=== PATIENT | male | born 1930 | race Caucasian/White ===

== ENCOUNTER 2016-10-27 10:07 | Outpatient (CLI) | payer MEDICARE ==
--- NOTE | 2016-10-27 11:11 | XRAY Report ---
THREE-VIEW RIGHT HAND: 10/27/2016 CLINICAL INDICATION: Pain. FINDINGS: AP, lateral, oblique views of the right hand demonstrate mild osteoarthritis of the interp halangeal joints. There is no evidence of acute fracture or dislocation. No radiopaque foreign body is seen in the soft tissues. IMPRESSION: MILD OSTEOARTHRITIS. JOB #: [id number] EXT JOB #:[id number]
== END 2016-10-27 10:08 | disposition home or self-care (01) ==
LOC: DI 10:07
PROVIDERS: ATTEND Nurse Practitioner Family
DX: M19.041 Primary osteoarthritis, right hand (principal)

== ENCOUNTER 2016-12-15 09:37 | Outpatient (CLI) | payer MEDICARE ==
--- NOTE | 2016-12-15 12:09 | Ultrasound Report ---
ABDOMINAL AORTA: 12/15/2016 COMPARISON: Abdominal aorta of 11/28/2014. INDICATION: Abdominal aortic aneurysm surveillance. TECHNIQUE: Sonographic evaluation of the abdominal aorta and proximal iliac arteries was performed. FINDINGS: Known abdominal aortic aneurysm measures 3.9 x 3.6 cm, previously 3.6 x 3.5 cm, a slight increase in size over the study interval compared to 2014. The proximal abdominal aorta is 2.5 x 2.5 cm. The mid abdominal aorta is 2.3 x 2.4 cm. The aorta distal to the aneurysm is 1.6 x 1.5 cm. Right iliac artery is 1.2 x 1.2 cm. Left iliac artery is 1.3 x 1.1 cm. Peak systolic velocities of the aorta measure up to 114 cm/second. IMPRESSION: INFRARENAL ABDOMINAL AORTIC ANEURYSM SLIGHTLY INCREASED IN SIZE FROM THE PRIOR EXAM NOW MEASURING 3.9 X 3.6 CM. JOB #: [id number] EXT JOB #:[id number]
== END 2016-12-15 09:38 | disposition home or self-care (01) ==
LOC: DI 09:37
PROVIDERS: ATTEND Internal Medicine
DX: I71.4 Abdominal aortic aneurysm, without rupture (principal)
CPT/HCPCS: 76706

== ENCOUNTER 2017-06-01 15:57 | Outpatient (CLI) | payer MEDICARE ==
--- NOTE | 2017-06-01 19:28 | Ultrasound Report ---
EXAM: RENAL ULTRASOUND EXAM DATE: 06/01/2017 06:24 PM. CLINICAL HISTORY: Pain, UTI. COMPARISON: None. TECHNIQUE: Real-time scanning was performed with static images obtained. FINDINGS: Right Kidney: 10.1 x 5.0 x 4.6 cm. Unremarkable echotexture. Small cyst measuring 1.1 x 1.1 x 1.1 cm. Multiple calculi, the largest measuring 1.5 x 0.9 cm in the lower pole. No hydronephrosis. Left Kidney: 10.9 x 5.6 x 5.1 cm. Unremarkable echotexture. Complex cyst measuring 1.6 x 1.1 x 1.5 cm . Multiple calculi, the largest measuring 1.2 cm in diameter in the lower pole. Mild hydronephrosis. Bladder: Normal right ureteral jet; left jet not seen area The prevoid bladder volume was 285.2 cc. T he postvoid bladder volume was 5.9 cc. Other: Prominent prostate measuring 5.0 x 4.2 x 4.2 cm. IMPRESSION: 1. Multiple bilateral renal calculi. 2. Absent left ureteral jet; mild left hydronephrosis. Obstructing stone is likely. RADIA The call report notification system was initiated by Dr. Bryan Hooker at 18:41 hrs on 06/01/17. Multiple attempts to call the report were unsuccessful. Referring Provider Line: [phone] SITE ID: [id number]
== END 2017-06-01 15:58 | disposition home or self-care (01) ==
LOC: DI 15:57
PROVIDERS: ATTEND Internal Medicine
DX: N20.0 Calculus of kidney (principal); N13.30 Unspecified hydronephrosis
CPT/HCPCS: 76770

== ENCOUNTER 2017-06-12 10:09 | Outpatient (CLI) | payer MEDICARE ==
--- NOTE | 2017-06-12 12:50 | Ultrasound Report ---
RENAL ULTRASOUND: 06/12/2017 CLINICAL INDICATION: Check stone. COMPARISON: 06/01/2017. TECHNIQUE: Real-time scanning was performed with customer sales representative static images obtained. FINDINGS: The right kidney measures 9.9 x 5.8 x 5.4 cm. Multiple calculi are again noted. The largest, in the lower pole, measures 1.2 cm. Cortical cyst is stable. No right hydronephrosis or perinephric collection. The left kidney measures 11.8 x 5.4 x 4.0 cm. Multiple calculi are again seen. Prominence of the left collecting system has decreased from previous. No perinephric collection is seen. Prevoid, the urinary bladder measures 10.0 x 9.2 x 9.2 cm, yielding a prevoid volume of 450 mL. Bilateral ureteral jets are visualized. Postvoid residual is 12 mL. No focal bladder wall lesion is seen. IMPRESSION: 1. BILATERAL NEPHROLITHIASIS, NOT SIGNIFICANTLY CHANGED. 2. DECREASE IN PROMINENCE OF THE LEFT RENAL COLLECTING SYSTEM, WITH VISUALIZATION OF THE LEFT URETERAL JET ON TODAY'S EXAMINATION, COMPATIBLE WITH INTERVAL PASSAGE OF A PREVIOUSLY OBSTRUCTING CALCULUS. 3. NO SIGNIFICANT POSTVOID RESIDUAL. TD: 06/12/2017 12:49 TIAGO
== END 2017-06-12 10:10 | disposition home or self-care (01) ==
LOC: DI 10:09
PROVIDERS: ATTEND Internal Medicine
DX: N20.0 Calculus of kidney (principal); N39.0 Urinary tract infection, site not specified
CPT/HCPCS: 76770

== ENCOUNTER 2018-03-23 18:30 | Emergency (ER) | payer MEDICARE ==
[2018-03-23] MEDS ORDERED: ACETAMINOPHEN 500 MG TABLET PO STA (19:00)
[2018-03-23] MEDS ORDERED: IBUPROFEN 600 MG TABLET PO STA (19:00)
--- NOTE | 2018-03-23 19:39 | XRAY Report ---
Reason: pain Procedure Date: 03/23/2018 Accession Number: [id number] / [id number] Procedure: XR - Wrist 3 View RT CPT Code: FULL RESULT: EXAM: RIGHT WRIST RADIOGRAPHY EXAM DATE: 03/23/2018 07:18 PM. CLINICAL HISTORY: Pain. COMPARISON: Hand 3 views, right 10/27/2016 10:18 AM. TECHNIQUE: 3 views. FINDINGS: Bones: Normal. No fractures or bone lesions. Joints: Mild degenerative changes at the radial-ulnar and first carpometacarpal joint. Soft Tissues: Normal. No soft tissue swelling. IMPRESSION: No acute bony injury. Mild radial-ulnar and first carpometacarpal joint degenerative changes. RADIA
[2018-03-23 20:21] VITALS: BP 138/96
--- NOTE | 2018-03-23 20:24 | ED Physician Documentation ---
PD HPI UPPER EXT INJURY - Stated complaint Stated Complaint: WRISTS PX - Chief complaint Chief Complaint: Ext Problem - History obtained from History obtained from: Patient - History of Present Illness Location: Right, Left, Wrist, Other (The patient's pain started in the bilateral wrist but now only has pain in his right wrist) Type of injury: Other (The patient's symptoms started yesterday after using an ax to cut wood) Where injury occurred: Home Timing - onset: Yesterday Timing - details: Gradual onset Severity Comments: mild Improved by: Rest, Immobilization Worsened by: Moving Associated symptoms: No: Weakness, Numbness, Tingling, Swelling, Discolored Similar symptoms before: Has not had sx before Recently seen: Not recently seen Review of Systems Constitutional: denies: Fever Eyes: denies: Discharge Cardiac: denies: Chest pain / pressure GI: denies: Abdominal Pain Musculoskeletal: reports: Extremity pain, Joint pain Neurologic: denies: Generalized weakness, Headache PD PAST MEDICAL HISTORY - Past Medical History Past Medical History: Yes Cardiovascular: Hypertension, High cholesterol Respiratory: None Endocrine/Autoimmune: None GI: None : Benign prostate hypertrophy, Kidney stones Psych: None Musculoskeletal: None Derm: None - Past Surgical History Past Surgical History: Yes General: Colonoscopy HEENT: Cataracts - Present Medications Home Medications: Ambulatory Orders Medication Instructions Recorded Confirmed Losartan [Cozaar] 50 mg PO BID 11/29/12 11/29/12 Loratadine [Claritin] 10 mg PO PRN 12/23/12 12/23/12 - Allergies Allergies/Adverse Reactions: Allergies Allergy/AdvReac Type Severity Reaction Status Date / Time Penicillins Allergy Severe Hives Verified 03/23/18 18:36 - Social History Does the pt smoke?: No Smoking Status: Never smoker Does the pt drink ETOH?: Yes Does the pt have substance abuse?: No - Immunizations Immunizations are current?: Yes - POLST Patient has POLST: No PD ED PE NORMAL - General General: Alert and oriented X 3, No acute distress - HEENT HEENT: Atraumatic, PERRL, EOMI, Ears normal - Derm Derm: Normal color - Extremities Extremities: Other (The patient has tenderness in bilateral wrist, there is no crepitus or obvious deformity or swelling or skin changes. The patient has full active range of motion. The patient has a normal bilateral radial pulses and brisk cap refill.) - Neuro Neuro: Alert and oriented X 3, Normal speech Results - Vitals Vitals: Vital Signs - 24 hr 03/23/18 03/23/18 18:33 20:20 Temperature 36.1 C L Heart Rate 76 76 Respiratory 20 18 Rate Blood Pressure 143/110 H 138/96 H O2 Saturation 98 98 Oxygen O2 Source Room air - Rads (name of study) XR wrist Radiology: Final report received, See rad report (IMPRESSION: No acute bony injury. Mild radial-ulnar and first carpometacarpal joint degenerative changes.) PD MEDICAL DECISION MAKING - ED course ED course: The patient's symptomsAre most likely secondary to overuse and the arthritis. Presently the patient appears appropriate for discharge and ongoing outpatient management. I discussed warning signs and recommended returning to the emergency department for any worsening or any concerns. Departure - Departure Disposition: 01 Home, Self Care Clinical Impression: Wrist pain, right Condition: Good Instructions: ED Degenerative Joint Disease Follow-Up: Domo Salazar MD [Primary Care Provider] - Within 1 week Comments: Please return to the ED for worsening symptoms or any concerns
== END 2018-03-23 20:20 | disposition home or self-care (01) ==
LOC: ED 18:30
DX: M25.531 Pain in right wrist (principal); I10 Essential (primary) hypertension; E78.00 Pure hypercholesterolemia, unspecified
CPT/HCPCS: 73110; 99282; 99283; A9270

== ENCOUNTER 2021-03-07 08:00 | Outpatient (CLI) | payer MEDICARE ==
--- NOTE | 2021-03-07 16:25 | XRAY Report ---
PROCEDURE: Chest 2 View X-Ray INDICATIONS: DYSPNEA UPON EXERTION TECHNIQUE: 2 view(s) of the chest. COMPARISON: None. FINDINGS: SUPPORT DEVICES: None. LUNGS/PLEURA: Linear density in right midlung zone. No focal consolidation, pleural effusion or space -occupying pneumothorax. MEDIASTINUM: The cardiomediastinal silhouette is within normal limits. BONES/SOFT TISSUES: No acute abnormality. IMPRESSION: 1.Plate atelectasis in the right midlung zone versus scarring. Reviewed by: Mina Maya MD on 03/07/2021 4:24 PM [facility] Approved by: Mina Maya MD on 03/07/2021 4:24 PM [facility] Station ID: [id number]
== END 2021-03-07 23:59 ==
LOC: DI.S 08:00
PROVIDERS: ATTEND Internal Medicine
DX: R06.09 Other forms of dyspnea (principal); R91.8 Other nonspecific abnormal finding of lung field

== ENCOUNTER 2021-07-06 22:43 | Outpatient (CLI) | payer MEDICARE | END 2021-07-06 22:44 | disposition critical access hospital (66) | LOC: EMS 22:43 | DX: N23 Unspecified renal colic (principal) | CPT/HCPCS: A0425; A0429 ==

== ENCOUNTER 2021-07-06 23:17 | Emergency (ER) | payer MEDICARE ==
[2021-07-06 23:45] LABS: BASOPHILS % (AUTO) 0.2 %; EOSINOPHILS % (AUTO) 0.2 %; HCT - HEMATOCRIT 41.7 % (42.0-52.0); LYMPHOCYTES # (AUTO) 0.9 10^3/uL (1.5-3.5); LYMPHOCYTES % (AUTO) 5.5 %; MEAN CORPUSCULAR HGB CONC 33.6 g/dL (32.0-36.0); MEAN CORPUSCULAR VOLUME 92.3 fL (80.0-94.0); MEAN PLATELET VOLUME 9.5 fL (7.4-11.4); MONOCYTES # (AUTO) 1.3 10^3/uL (0.0-1.0); MONOCYTES % (AUTO) 8.2 %; NEUTROPHILS # (AUTO) 13.9 10^3/uL (1.5-6.6); NEUTROPHILS % (AUTO) 85.6 %; PLT - PLATELET COUNT 219 10^3/uL (130-450); RED BLOOD COUNT 4.52 10^6/uL (4.70-6.10); RED CELL DISTRIBUTION WIDTH 12.5 % (12.0-15.0); WHITE BLOOD COUNT 16.2 x10^3/uL (4.8-10.8)
[2021-07-06 23:57] LABS: ALBUMIN 4.2 g/dL (3.2-5.5); ALBUMIN/GLOBULIN RATIO 1.3 (1.0-2.2); CALCIUM 9.3 mg/dL (8.5-10.3); CREATININE 1.8 mg/dL (0.6-1.2); POTASSIUM 4.1 mmol/L (3.5-5.0); TOTAL PROTEIN 7.5 g/dL (6.7-8.2)
[2021-07-07] MEDS ORDERED: ONDANSETRON 4 MG/2 ML VIAL IVP STA (00:31)
[2021-07-07] MEDS ORDERED: SODIUM CHLORIDE 0.9% 1,000 ML IV STA (00:31)
[2021-07-07] MEDS ORDERED: fentaNYL 100 MCG/2 ML VIAL IVP STA (00:32)
--- NOTE | 2021-07-07 00:33 | ED Physician Documentation ---
PD HPI ABD PAIN - Stated complaint Stated Complaint: RIGHT FLANK PAIN - Chief complaint Chief Complaint: Abd Pain - Additional information Additional information: Patient is an 89-year-old male with past medical significant for recurrent kidn ey stones, as well as known history of aortic abdominal aneurysm presenting to the emergency department with right-sided flank pain. Reports pain ongoing x1 day. Associated with nausea and vomiting. States this feels similar to kidney stones he has had in the past. Review of Systems Ten Systems: 10 systems reviewed and negative Constitutional: denies: Fever Eyes: denies: Loss of vision Ears: denies: Loss of hearing Nose: denies: Rhinorrhea / runny nose Throat: denies: Dental pain / toothache Cardiac: denies: Chest pain / pressure Respiratory: denies: Dyspnea GI: reports: Abdominal Pain, Nausea, Vomiting : denies: Dysuria Skin: denies: Rash PD PAST MEDICAL HISTORY - Past Medical History Cardiovascular: Hypertension, High cholesterol Respiratory: None Endocrine/Autoimmune: None GI: None : Benign prostate hypertrophy, Kidney stones Psych: None Musculoskeletal: None Derm: None - Past Surgical History Past Surgical History: Yes General: Colonoscopy HEENT: Cataracts - Present Medications Home Medications: Ambulatory Orders Medication Instructions Recorded Confirmed Losartan [Cozaar] 50 mg PO BID 11/29/12 11/29/12 Loratadine [Claritin] 10 mg PO PRN 12/23/12 12/23/12 - Allergies Allergies/Adverse Reactions: Allergies Allergy/AdvReac Type Severity Reaction Status Date / Time Penicillins Allergy Severe Hives Verified 07/06/21 23:30 - Social History Does the pt smoke?: No Smoking Status: Never smoker Does the pt drink ETOH?: Yes Does the pt have substance abuse?: No - Immunizations Immunizations are current?: Yes - POLST Patient has POLST: No PD ED PE NORMAL - Vitals Vital signs reviewed: Yes - General General: Alert and oriented X 3 - HEENT HEENT: Atraumatic, PERRL, EOMI, Ears normal - Neck Neck: Supple, no meningeal sign, No bony TTP - Cardiac Cardiac: RRR, No gallop, Strong equal pulses - Respiratory Respiratory: No respiratory distress, Clear bilaterally - Abdomen Abdomen: Normal bowel sounds. No: Non tender (Right lower quadrant tenderness with guarding.) - Male Male : Deferred - Rectal Rectal: Deferred - Derm Derm: Normal color - Extremities Extremities: No deformity, No edema - Neuro Neuro: Alert and oriented X 3, manager of data 2-12 intact, No motor deficit, No sensory deficit, Normal speech - Psych Psych: Normal mood Results - Vitals Vitals: Vital Signs - 24 hr 07/06/21 07/06/21 07/07/21 23:28 23:31 02:13 Temperature 37.6 C Heart Rate 99 98 96 Respiratory 15 17 Rate Blood Pressure 180/91 H O2 Saturation 97 97 97 07/07/21 07/07/21 07/07/21 02:55 03:38 04:26 Temperature Heart Rate 93 91 96 Respiratory 15 17 16 Rate Blood Pressure 158/81 H 145/76 H 145/82 H O2 Saturation 95 98 96 07/07/21 05:22 Temperature Heart Rate 89 Respiratory 20 Rate Blood Pressure 146/77 H O2 Saturation 98 Oxygen O2 Source Room air - Labs Labs: Laboratory Tests 07/06/21 07/06/21 07/07/21 23:25 23:25 00:42 WBC 16.2 H RBC 4.52 L Hgb 14.0 Hct 41.7 L MCV 92.3 MCH 31.0 MCHC 33.6 RDW 12.5 Plt Count 219 MPV 9.5 Neut # (Auto) 13.9 H Lymph # (Auto) 0.9 L [place] # (Auto) 1.3 H Eos # (Auto) 0.0 Baso # (Auto) 0.0 Absolute Nucleated RBC 0.00 Nucleated RBC % 0.0 Sodium 133 L Potassium 4.1 Ch[place] 99 L Carbon Dioxide 21 Anion Gap 13.0 BUN 36 H Creatinine 1.8 H Estimated GFR (MDRD) 36 L Glucose 142 H Lactic Acid Calcium 9.3 Total Bilirubin 1.0 AST 22 ALT 22 Alkaline Phosphatase 66 Troponin I High Sens 5.6 Total Protein 7.5 Albumin 4.2 Globulin 3.3 Albumin/Globulin Ratio 1.3 Lipase 34 Urine Color Urine Clarity Urine pH Ur Specific [place] Urine Protein Urine Glucose (UA) Urine Ketones Urine Occult Blood Urine Nitrite Urine Bilirubin Urine Urobilinogen Ur Leukocyte Esterase Urine RBC Urine WBC Ur Squamous Epith Cells Urine Bacteria Ur Microscopic Review Urine Culture Comments SARS-CoV-2 (PCR) 07/07/21 07/07/21 07/07/21 00:42 01:30 02:57 WBC RBC Hgb Hct MCV MCH MCHC RDW Plt Count MPV Neut # (Auto) Lymph # (Auto) [place] # (Auto) Eos # (Auto) Baso # (Auto) Absolute Nucleated RBC Nucleated RBC % Sodium Potassium [place] Carbon Dioxide Anion Gap BUN Creatinine Estimated GFR (MDRD) Glucose Lactic Acid 1.2 Calcium Total Bilirubin AST ALT Alkaline Phosphatase Troponin I High Sens Total Protein Albumin Globulin Albumin/Globulin Ratio Lipase Urine Color YELLOW Urine Clarity SL. CLOUDY Urine pH 7.0 Ur Specific [place] 1.015 Urine Protein TRACE Urine Glucose (UA) NEGATIVE Urine Ketones NEGATIVE Urine Occult Blood LARGE H Urine Nitrite NEGATIVE Urine Bilirubin NEGATIVE Urine Urobilinogen 0.2 (NORMAL) Ur Leukocyte Esterase LARGE H Urine RBC 6-10 H Urine WBC >25 H Ur Squamous Epith Cells FEW Squamous Urine Bacteria Few Ur Microscopic Review INDICATED Urine Culture Comments INDICATED SARS-CoV-2 (PCR) NOT DETECTED PD MEDICAL DECISION MAKING - ED course Complexity details: reviewed results, re-evaluated patient, d/w patient ED course: Patient is 89-year-old male presenting to the emergency department with acute onset right-sided flank pain in setting of recurrent nephrolithiasis as well as known history of AAA. Afebrile, hemodynamically stable on arrival to the emergency department. Notable right lower quadrant tenderness with guarding but no rebound or rigidity appreciated on physical exam. Labs obtained demonstrate significant leukocytosis as well as a creatinine of 1.8. This is a significant increase from 1.1 which is patient's most recent creatinine recorded in 2013. No significant electrolyte abnormality noted. Urine analysis positive for a large amount of blood as well as large amounts of leukocyte esterase, greater than 25 white blood cell count and few bacteria noted. Patient endorse for history of anaphylaxis to penicillin based antibiotics. Was given dose of levofloxacin here in the emergency department. CT of the abdomen pelvis shows a 5 mm right-sided obstructive kidney stone with some inflammatory changes around the right kidney. Additionally patient was noted to have an unruptured AAA now 4.7 cm in greatest diameter. Patient chart review does demonstrate that it is being monitored and this does not represent an increase from most previous measurement on record which was 4.0 cm. Given patient's obstructed stone, worsening renal function and indications of infection in his urine as well as a significant leukocytosis of 16 I have asked the charge nurse to contact local area facilities in order to inquire about transfer for evaluation by urology and possible stent placement. At this time there are no beds available regionally. Patient is on the wait list at multiple facilities. I will be signing him out to the oncoming physician, please see their documentation for further detail. - Consults Consults: Consulted (name) (Dr. Quevedo, Urology, [facility]) Departure - Departure Disposition: 02 Transfer Acute Care Hosp Clinical Impression: Pulmonary nodule, MAGEN (acute kidney injury), Leukocytosis, UTI (urinary tract infection), AAA (abdominal aortic aneurysm) without rupture
[2021-07-07] MEDS ORDERED: IOVERSOL 320 100 ML VIAL IVP ONE ×2 (01:14→02:19)
[2021-07-07 01:42] LABS: BILIRUBIN,URINE NEGATIVE (NEGATIVE); CLARITY,URINE SL. CLOUDY (CLEAR); GLUCOSE, URINE (UA) NEGATIVE (NEGATIVE); KETONES,URINE (UA) NEGATIVE (NEGATIVE); LEUKOCYTE ESTERASE, URINE LARGE (NEGATIVE); NITRITE,URINE NEGATIVE (NEGATIVE); OCCULT BLOOD,URINE LARGE (NEGATIVE); PROTEIN,URINE TRACE mg/dL (NEGATIVE); UROBILINOGEN,URINE 0.2 (NORMAL) E.U./dL (NORMAL)
[2021-07-07 01:51] LABS: BACTERIA,URINE Few /HPF (None Seen); SQUAMOUS EPITHELIAL CELL,UR FEW Squamous (<= Few); WBC,URINE >25 /HPF (0-3)
[2021-07-07] MEDS ORDERED: levoFLOXacin 750 MG/150 ML 750 MG/150 ML BAG IV STA (02:39)
[2021-07-07 08:14] LABS: INR 1.3 (0.8-1.2)
--- NOTE | 2021-07-07 08:29 | CT Report ---
PROCEDURE: ANGIO CHEST W/WO INDICATIONS: History of aortic aneurysm CONTRAST: IV CONTRAST: Optiray 320 ml: 100 PO CONTRAST: *NO PO CONTRAST TECHNIQUE: After the administration of intravenous contrast, 2 mm axial images were acquired from the pulmonary apices to the posterior costophrenic angles during the arterial phase. In addition, 1 mm lung kernel and 5 mm soft tissue kernel reconstructions were performed. 3-dimensional coronal oblique maximum int ensity projection (MIP) reformats, 8 mm axial MIP, and 5 mm coronal and sagittal MPR reformats were t hen performed through the thorax. For radiation dose reduction, the following was used: automated exp osure control, adjustment of mA and/or kV according to patient size. COMPARISON: None FINDINGS: Image quality: Excellent. Aorta: There is mild ectasia of the ascending aorta measuring up to 4.3 cm, although motion artifact limits exam. There is soft plaque noted in the descending aorta. Pulmonary arteries: Pulmonary arteries are normal in size, and demonstrate no intraluminal filling d efects to suggest central pulmonary embolism. Lungs and pleura: There is a 4 mm nodule in the left upper lobe anteriorly image 131. Dependent atele ctasis is present at the lung bases. No pleural effusions or pneumothorax. Central and peripheral ai rways are patent. Mediastinum: Heart size is normal, with trace pericardial fluid.. No mediastinal or hilar adenopath y. Thoracic aorta is normal in caliber and enhancement. Esophagus is normal in caliber, without hia riky hernia. The coronary arteries have atherosclerotic calcifications. Mitral annular calcifications are present. Bones and chest wall: No suspicious bony lesions. Ribs and thoracic spine appear intact throughout. No axillary or supraclavicular adenopathy. The thyroid is normal in size and there are no incident al findings. Abdomen: See separately dictated CT of the abdomen and pelvis. IMPRESSION: 1. The ascending aorta measures 4.3 cm. 2. No pulmonary embolism. 3. 4 mm left upper lobe nodule. Recommend follow-up in 12 months. Findings above correspond with preliminary findings by [facility]. Reviewed by: Thanh Wilhelm on 07/07/2021 8:28 AM PDT Approved by: Thanh Wilhelm on 07/07/2021 8:28 AM PDT Station ID: [id number]
--- NOTE | 2021-07-07 08:34 | CT Report ---
PROCEDURE: ANGIO ABDOMEN/PELVIS W INDICATIONS: Aneurysm, right lower quadrant pain TECHNIQUE: After the administration of contrast, 5 mm thick sections acquired from the diaphragms to the sym physis. 5 mm thick coronal and sagittal reformats were acquired. For radiation dose reduction, the following was used: automated exposure control, adjustment of mA and/or kV according to patient size . COMPARISON: None. FINDINGS: Image quality: Excellent. ABDOMEN: Lung bases: Lung bases are clear. Heart size is normal. Solid organs: Liver: The liver has no mass or intrahepatic biliary ductal dilatation. The portal vein and hepatic veins are patent. Biliary: The gallbladder has no gallstones, pericholecystic fluid, gallbladder wall thickening, or barcenas rrounding inflammatory change. Pancreas: The pancreas has no mass or ductal dilatation. No surrounding inflammation. Spleen: Normal size. No mass. Adrenal glands: No hypertrophy or nodules. Kidneys: There is hydronephrosis and stranding around the right kidney. Nonobstructing calculi are no otf in the lower pole of the right kidney. There is a 5 mm obstructing calculus in the proximal urete r on the right image 73. Scarring in the lower pole of the left kidney as well as nonobstructing calc jason are seen.No solid mass. No cystic mass. Bowel: The distal esophagus and stomach are normal. The small bowel has a normal caliber and appeara nce. The terminal ileum is normal. The large bowel has diverticulosis without evidence of diverticu litis. Free air/free fluid: No free air or free fluid. Abdominal wall: No abdominal wall mass or hernia. Retroperitoneum: No retroperitoneal or mesenteric adenopathy by size criteria. The aorta has atheros clerotic calcifications. There is a 4.7 x 4.6 cm infrarenal abdominal aortic aneurysm. This measured 3.1 x 2.8 cm on 11/15/2012. The celiac axis is minimally stenotic at its ostium. The SMA and JAYANT are w idely patent. The renal arteries are patent bilaterally. Lymph nodes: No adenopathy. Bones: No suspicious bony lesions. No vertebral body compression fractures. PELVIS: Genitourinary: Bladder wall thickness is normal. Miscellaneous: Bilateral fat-containing inguinal hernias. Bones: No suspicious bony lesions. No vertebral body compression fractures. IMPRESSION: 1. Infrarenal abdominal aortic aneurysm measuring 4.7 x 4.6 cm spanning approximately 5 cm in length. This is larger compared to a prior CT in 2013 as above. 2. Bilateral nephrolithiasis as well as a nonobstructing 5 mm proximal ureteral calculus on the right . Findings above correspond with preliminary findings by Pam. Reviewed by: Thanh Wilhelm on 07/07/2021 8:32 AM PDT Approved by: Thanh Wilhelm on 07/07/2021 8:32 AM PDT Station ID: [id number]
--- NOTE | 2021-07-07 15:36 | ED Physician Documentation ---
ED Addendum - Addendum Addendum: 07/07/21 15:34I checked in on the patient who is feeling comfortable at this time. He has not needed any further pain medicines. He still feels some discomfort however so unlikely that the stone is passed. Vitals remained stable and he is afebrile. He had been given a dose of levofloxacin and so does not need any repeat dosings as yet. I advised the patient to be sure and let us know if he needs any further pain or nausea medications. He is still on waiting list at multiple facilities with the concern of an infected stone with some hydronephrosis.
[2021-07-07] MEDS ORDERED: LACTATED RINGERS 1,000 ML IV STA (17:35)
--- NOTE | 2021-07-07 17:50 | ED Physician Documentation ---
ED Addendum - Addendum Addendum: 07/07/21 17:49 89-year-old gentleman signed out to me pending potential transfer for urology consultation. At approximately 540 I was able to speak with Dr. Blade torres, urologist associated with the [facility], [place] and we discussed the presentation and diagnostics including labs and CT findings. He felt that the patient had been here long enough that if he was going to get septic, it would have declared itself by now and could probably be safely discharged for urgent follow-up with antibiotics and Flomax. I discussed this with the patient and he was eager to go home and agreeable with the plan. He declined a prescription for pain medications. We also discussed the incidental finding of AAA. He has already established with a vascular surgeon at [facility] and expedited follow-up was recommended. Disposition: Discharged home Condition: Stable Diagnoses: 1. Right ureteral stone 2. Pyuria 3. AAA Prescriptions for Flomax 0.4 mg p.o. daily #14 and levofloxacin 500 mg p.o. daily #8 were sent to [facility] in [place].
[2021-07-07] MEDS ORDERED: levoFLOXacin 250 MG TABLET PO STA (17:52)
[2021-07-07 17:58] VITALS: BP 152/87
== END 2021-07-07 18:57 | disposition home or self-care (01) ==
LOC: EDUNIT# → ED 23:17
DX: R91.1 Solitary pulmonary nodule (principal); N17.9 Acute kidney failure, unspecified; D72.829 Elevated white blood cell count, unspecified; N39.0 Urinary tract infection, site not specified; I71.4 Abdominal aortic aneurysm, without rupture; N20.1 Calculus of ureter; I10 Essential (primary) hypertension
CPT/HCPCS: 36415; 71275; 74174; 80053; 81001; 83605; 83690; 84484; 85025; 85610; 87086; 87635; 96361; 96365; 96366; 96375; 99284; 99285; A9270; J7120; Q9967; 81003

== ENCOUNTER 2021-07-28 07:37 | Outpatient (CLI) | payer MEDICARE ==
--- NOTE | 2021-07-28 08:35 | CARDIAC PROCEDURE NOTE ---
Stress Test Report Service Date: 07/28/21 Service Time: 08:00 Ordering Provider: Domo Salazar MD Indication for Test: Assess exertional dyspnea. 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 He has been treated for hypertension for at least 15 years. Whereas he was previously very vigorous working around his property, his tolerance of physical exertion has gradually but progressively decreased over the past 2-3 years. Sometimes he is able to "tough it out" to complete his physical work tasks taking extra deep breaths, but at other times he has to take intermittent breaks to re-group and can then resume. He denies having any exertional chest discomfort, lightheadedness or palpitations, and he does not experience any resting or positional dyspnea. Cardiac Risk Factors: Positive for hypertension; negative for hyperlipidemia, diabetes, family history of CAD and tobacco smoking ever. Type of Stress Test: ETT with Echocardiography Procedure: -Exercise Treadmill Test- After signing informed consent, the patient underwent resting echo imaging and then performed treadmill exercise using a Julien protocol. The patient exercised for 5 minutes 46 seconds and achieved a peak heart rate of 141 (107 percent predicted maximum heart rate for age), and an estimated workload of 7.1 METS. The test was terminated due to right thigh pain and shortness of breath. Resting heart rate: 75 Peak heart rate: 141 Normal response to exercise. Resting BP: 158/81 Peak BP: 207/98 Hypertensive at rest with physiologic increase in systolic and abnormal increase in diastolic BPs with exercise. Rhythm during exercise: Sinus rhythm throughout. Symptoms: Thigh pain was more limiting than dyspnea; NO chest discomfort reported. EKG at rest showed normal sinus rhythm, with isoelectric ST segments and early precordial R/S transition (V1-V2), latter likely a normal variant. EKG at peak stress showed J-point depression with upsloping ST segments, NOT meeting diagnostic criteria for ischemia. In Recovery HR rapidly/normally decreased toward resting level, with slower d ecrease in BP (remained elevated, 177/87) at 7:00. Echo imaging was performed at rest and with stress and will be reported separately. Julien Ramírez MD, was present throughout this treadmill stress study and supervised it in its entirety. Summary: 1) Exercise tolerance likely remains markedly above average for age and sex as evidenced by nomogram-derived GENOVEVA of -40%. 2) Normal resting EKG. 3) Adequate level of exercise was achieved on this treadmill stress test. 4) Hypertensive at rest, with physiologic response of systolic BP and abnormal increase of diastolic BP with exercise. Note that last losartan dose was >12 hours prior, and last dose of verapamil was >24 hours prior, to this ETT. 5) No ischemic changes by EKG criteria were seen at peak stress. 6) Echo image interpretation reveals normal left ventricular size and systolic function, with appropriate hyperdynamic augmentation of all segments with exercise, indicating no evidence of prior infarct or inducible ischemia. Mild concentric left ventricular hypertrophy and signs of grade I diastolic dysfunction are present. No significant valvular abnormality is present. See separate report for more details. CONCLUSIONS: 1) Reassuring ETT results, showing maintained exertional tolerance and no description of severe exertional dyspnea. 2) No echo evidence of prior infarct or inducible ischemia; long history of hypertension, mild LVH and findings for grade I diastolic dysfunction may be contributing to the patient's symptom perceptions.
== END 2021-07-28 07:38 | disposition home or self-care (01) ==
LOC: DI 07:37
PROVIDERS: ATTEND Internal Medicine
DX: R06.09 Other forms of dyspnea (principal); I11.9 Hypertensive heart disease without heart failure
CPT/HCPCS: 93350